=== PATIENT | male | born 1975 | race Two or more races ===

== ENCOUNTER 2017-09-12 08:21 | Outpatient (CLI) | payer OTHER | END 2017-09-12 08:29 | disposition home or self-care (01) | LOC: LAB 08:21 | DX: R97.21 Rising PSA following treatment for malignant neoplasm of prostate (principal) ==

== ENCOUNTER → 2020-05-30 11:03 | Outpatient (CLI) | payer OTHER ==
[~2020-05-30 11:03] MED LIST: DICLOFENAC SODI50 MG PO; SKELAXIN800 MG PO
== END | disposition home or self-care (01) ==
LOC: LAB 11:03
PROVIDERS: ATTEND Internal Medicine Sports Medicine
DX: D64.89 Other specified anemias (principal); E11.9 Type 2 diabetes mellitus without complications; E78.2 Mixed hyperlipidemia; I10 Essential (primary) hypertension; E03.8 Other specified hypothyroidism; R97.20 Elevated prostate specific antigen [PSA]; N40.0 Benign prostatic hyperplasia without lower urinary tract symptoms; E59 Dietary selenium deficiency; E55.9 Vitamin D deficiency, unspecified

== ENCOUNTER 2021-04-13 08:00 | Outpatient (CLI) | payer OTHER | END 2021-04-13 08:30 | disposition home or self-care (01) | LOC: PPH VACUNA 08:00 | DX: Z23 Encounter for immunization (principal) ==

== ENCOUNTER 2021-05-05 08:00 | Outpatient (CLI) | payer OTHER | END 2021-05-05 08:30 | disposition home or self-care (01) | LOC: PPH VACUNA 08:00 | DX: Z23 Encounter for immunization (principal) ==

== ENCOUNTER 2021-11-10 08:00 | Outpatient (CLI) | payer OTHER | END 2021-11-10 08:30 | disposition home or self-care (01) | LOC: PPH VACUNA 08:00 | PROVIDERS: ATTEND Emergency Medicine Pediatric Emergency Medicine | DX: Z23 Encounter for immunization (principal) ==

== ENCOUNTER 2022-08-22 08:21 | Outpatient (CLI) | payer OTHER ==
[2022-08-22] MEDS ORDERED: METAXALONE800 MG PO (10:00)
[2022-08-22] MEDS ORDERED: NABUMETONE500 MG PO (10:00)
== END 2022-08-22 08:22 | disposition home or self-care (01) ==
LOC: LAB 08:21
PROVIDERS: ATTEND Internal Medicine Sports Medicine
DX: D64.9 Anemia, unspecified (principal); E11.8 Type 2 diabetes mellitus with unspecified complications; E78.00 Pure hypercholesterolemia, unspecified; I10 Essential (primary) hypertension; E03.9 Hypothyroidism, unspecified; E55.9 Vitamin D deficiency, unspecified

== ENCOUNTER 2022-08-27 10:15 | Outpatient (CLI) | payer OTHER ==
[~2022-08-27 10:15] MED LIST changes: +METAXALONE800 MG PO; +NABUMETONE500 MG PO
== END 2022-08-27 10:21 | disposition home or self-care (01) ==
LOC: RAD 10:15
PROVIDERS: ATTEND Chiropractor
DX: M99.03 Segmental and somatic dysfunction of lumbar region (principal); M99.02 Segmental and somatic dysfunction of thoracic region; M99.01 Segmental and somatic dysfunction of cervical region